=== PATIENT | female | born 2000 | race African-American/Black ===

== ENCOUNTER 2019-04-26 12:00 | Day surgery (SDC) | payer OTHER ==
[2019-04-26 12:58] VITALS: BMI 36.0
[2019-04-26] MEDS ORDERED: FLU VACC QS2019-20(6MOS UP)/PF 60 MCG/0.5 ML SYRINGE IM ONE (13:15)
[2019-04-26 14:21] LABS: #Eosinphils 0.1 thou/uL (0.0-0.7); #Lymphocytes 1.3 thou/uL (1.20-3.40); #Monocytes 0.9 thou/uL (0.11-0.59); #Neutrophils 9.3 thou/uL (1.40-6.50); %Basophils 0.1 % (0.0-1.0); %Eosinophils 0.6 % (0.0-10.0); %Lymphocytes 11.5 % (28.0-48.0); %Monocytes 7.4 % (0.0-4.0); %Neutrophils 80.4 % (31.0-61.0); Hemoglobin 11.6 g/dL (12.0-16.0); Mean Corpuscular HGB CONC 33.7 g/dL (32.0-36.0); Mean Corpuscular Hemoglobin 27.5 pg (25.0-35.0); Mean Corpuscular Volume 81.6 fL (78.0-98.0); Mean Platelet Volume 8.3 fL (7.4-10.4); Platelet Count 231 thou/uL (130-400); RBC Distribution Width 13.1 % (11.5-14.5); Red Blood Cell (RBC) Count 4.22 mill/uL (4.00-5.20); White Blood Cell (WBC) Count 11.6 thou/uL (4.8-10.8)
[2019-04-26 14:45] LABS: ALT (SGPT) 7 U/L (8-55); AST (SGOT) 17 U/L (5-30); Alkaline Phosphatase 130 U/L (40-100); Anion Gap 12 mmol/L (10-20); BUN (Urea Nitrogen) 8 mg/dL (8.4-21.0); Bilirubin, Total 0.2 mg/dL (0.2-1.2); Calc. Creatinine Clearance 180 mL/min (70-130); Calcium 8.9 mg/dL (7.8-10.44); Carbon Dioxide 22 mmol/L (22-29); Chloride 106 mmol/L (98-107); Estimated GFR-MDRD Greater than 90; Globulin 3.8 g/dL (2.4-3.5); Glucose 73 mg/dL (70-105); Potassium 4.3 mmol/L (3.5-5.1); Protein, Total 6.8 g/dL (6.0-8.3); Sodium 136 mmol/L (136-145); Uric Acid 4.6 mg/dL (2.6-6.0)
[2019-04-26] MEDS ORDERED: hydrALAZINE 20 MG/ML VIAL SLOW IVP PRN (17:01)
--- NOTE | 2019-04-26 17:32 | CON ---
DATE OF CONSULTATION: 04/26/2019 PRIMARY OB: Brittany Rasmussen MD CHIEF COMPLAINT: Elevated blood pressures. HISTORY OF PRESENT ILLNESS: The patient is a 18-year-old G1, P0 female with an intrauterine at 37 weeks and 2 days, presenting to Labor and Delivery from clinic today after a routine visit. The patient was noted to have elevated blood pressures in the 140 systolic and sent here for evaluation. The patient denies headache, chest pain, shortness of breath, abdominal pain, vision change, fever, nausea, vomiting, diarrhea, constipation, hip problems, knee problems, muscle weakness, any new rashes, urinary urgency or frequency, vaginal bleeding, or leakage of fluid. PAST MEDICAL HISTORY: Negative. PAST SURGICAL HISTORY: Negative. ALLERGIES: NO KNOWN DRUG ALLERGIES. MEDICATIONS: vitamins. SOCIAL HISTORY: Denies drug, alcohol, or tobacco use. OB LABS: Unavailable at the time of dictation. REVIEW OF SYSTEMS: Per HPI. PHYSICAL EXAMINATION: VITAL SIGNS: Most recent blood pressure is 127/83, heart rate of 72. The patient has been present for the last several hours with blood pressure monitoring and has had only one blood pressure elevated borderline at diastolic of 91. The rest of her blood pressures have been in the 1-teens to 130s over 70s to 80s. GENERAL: She appears to be in no acute distress. She is alert and oriented, cooperative and pleasant to interact with. HEAD: Normocephalic and atraumatic. LUNGS: Clear to auscultation bilaterally. HEART: Has a regular rate and rhythm. ABDOMEN: Gravid, soft, and nontender. EXTREMITIES: Nontender and nonedematous. She has a negative Quick sign. heart tracing shows the fetus with a baseline in the 120s with moderate long-term variability, positive 15 x 15 accelerations, no decelerations. The patient is showing contractions, irregular in nature, every 2 to 5 minutes, that are not all perceptible to the patient. She does report she does feel a little bit of tightening in her belly, but has no pain. ASSESSMENT AND PLAN: The patient is a 18-year-old G1, P0 female with an intrauterine at 37 weeks and 2 days, who had some isolated elevated pressures in the clinic that are not reproducible here with us. No evidence of preeclampsia by lab work, and the patient is without symptoms at this time. She is being discharged to home with reassurance. She has been given instructions to check her blood pressures at home and has been given instructions on good technique. She also has been given instructions to call tomorrow, Dr. Rasmussen's office and make a followup appointment early next week. Fetus has a category 1 tracing and reactive NST. Job ID: [id number]
== END 2019-04-26 17:00 | disposition home or self-care (01) ==
LOC: L&D/OP 12:00 → EDSTATUS 14:02 → L&D/OP 17:00
PROVIDERS: ATTEND Obstetrics & Gynecology
DX: O16.3 Unspecified maternal hypertension, third trimester (principal); Z3A.37 37 weeks gestation of pregnancy
CPT/HCPCS: 36415; 80053; 82570; 84156; 84550; 85025

== ENCOUNTER 2019-05-03 10:55 | Inpatient (IN) | payer OTHER ==
[2019-05-03 11:57] VITALS: BMI 36.0
[2019-05-03] MEDS ORDERED: Lidocaine 1% (PF) 30 ML VIAL SC PRN (12:28)
[2019-05-03] MEDS ORDERED: Ondansetron PF 4 MG/2 ML Vial IVP PRN ×2 (12:28→23:31)
[2019-05-03] MEDS ORDERED: NS / Oxytocin 40 units/1000ml 1,000 ML IV PRN (12:28)
[2019-05-03] MEDS ORDERED: Butorphanol Tartrate 1 MG/ML VIAL SLOW IVP PRN (12:28)
[2019-05-03] MEDS ORDERED: Acetaminophen 500 MG TAB PO PRN (12:28)
[2019-05-03] MEDS ORDERED: hydrALAZINE 20 MG/ML VIAL SLOW IVP PRN (12:28)
[2019-05-03] MEDS ORDERED: Promethazine HCl 25 MG/ML VIAL IM PRN ×2 (12:28→23:31)
[2019-05-03] MEDS ORDERED: NS w/ Oxytocin 10 units 500 ML IV SCH (12:30)
[2019-05-03] MEDS: Lactated Ringer's 1,000 ML IV SCH ×2 (12:42→20:27)
[2019-05-03 12:57] LABS: Mean Corpuscular HGB CONC 34.1 g/dL (32.0-36.0); Mean Corpuscular Hemoglobin 26.9 pg (25.0-35.0); Mean Corpuscular Volume 79.1 fL (78.0-98.0); Mean Platelet Volume 8.9 fL (7.4-10.4); Platelet Count 238 thou/uL (130-400); RBC Distribution Width 13.2 % (11.5-14.5); Red Blood Cell (RBC) Count 4.43 mill/uL (4.00-5.20); White Blood Cell (WBC) Count 12.2 thou/uL (4.8-10.8)
[2019-05-03] MEDS: Misoprostol 100 MCG TAB VAG SCH ×4 (13:18→22:45)
[2019-05-03 13:38] LABS: HBSAg Index 0.17 S/CO (0-0.99); Hep B Surf Ag Non-Reactive S/CO (NonReactive); Syphilis Antibody Nonreactive (Nonreactive); Syphilis Antibody Index 0.06 S/CO (<1.00 Non-Reactive)
[2019-05-03 13:43] LABS: ALT (SGPT) 8 U/L (8-55); AST (SGOT) 24 U/L (5-30); Albumin 3.2 g/dL (3.5-5.0); Alkaline Phosphatase 142 U/L (40-100); Anion Gap 14 mmol/L (10-20); BUN (Urea Nitrogen) 8 mg/dL (8.4-21.0); Bilirubin, Total 0.2 mg/dL (0.2-1.2); Calc. Creatinine Clearance 206 mL/min (70-130); Calcium 8.8 mg/dL (7.8-10.44); Carbon Dioxide 19 mmol/L (22-29); Chloride 105 mmol/L (98-107); Estimated GFR-MDRD Greater than 90; Globulin 3.9 g/dL (2.4-3.5); Glucose 72 mg/dL (70-105); Potassium 4.8 mmol/L (3.5-5.1); Protein, Total 7.1 g/dL (6.0-8.3); Sodium 133 mmol/L (136-145)
[2019-05-03] MEDS ORDERED: Fentanyl 4 mcg/Bup 0.1% Cadd 100 ML ONE (22:51)
[2019-05-03] MEDS ORDERED: diphenhydrAMINE 50 MG/ML VIAL IVP PRN (23:31)
[2019-05-03] MEDS ORDERED: Naloxone HCl 0.4 mg/ml Vial IVP PRN ×2 (23:31)
[2019-05-03] MEDS ORDERED: ePHEDrine/0.9% NaCl/PF SYRINGE 50 mg/10 ml SLOW IVP PRN (23:31)
[2019-05-03] MEDS ORDERED: Acetaminophen 325 MG TAB PO PRN (23:31)
[2019-05-03] MEDS ORDERED: Lactated Ringer's 500 ML IV PRN (23:31)
[2019-05-03] MEDS ORDERED: Communication Order-Pharmacy FS SCH (23:45)
[2019-05-04] MEDS: Lactated Ringer's 1,000 ML IV SCH ×2 (00:22→14:25)
[2019-05-04] MEDS: Misoprostol 100 MCG TAB VAG SCH ×5 (03:23→17:06)
[2019-05-04] MEDS ORDERED: Fentanyl 4 mcg/Bup 0.1% Cadd 100 ML ONE ×2 (07:06→13:56)
[2019-05-04] MEDS: Fentanyl 4 mcg/Bupivacaine 0.1% Cassette 100 ML EPIDURAL SCH ×2 (07:37→14:02)
[2019-05-04] MEDS ORDERED: FLU VACC QS2019-20(6MOS UP)/PF 60 MCG/0.5 ML SYRINGE IM ONE (12:15)
[2019-05-04] MEDS ORDERED: Bicitra 30 ML UDCUP ONE (14:19)
--- NOTE | 2019-05-04 14:27 | PDOC.EVN ---
Event Note - Event Note Event Note: Patient admitted for mild preeclampsia at 38-39 weeks. Has undergone cytotec and pitocin induction. Reached complete/complete ROP over 2 hourS AGO. Has been pushing with no descent in station. Manual rotation attempted with no success. tracing baseline 120's with reactivity. Pelvis is anthropoid and marginal... Exam complete/complete anterior fontanel at minus 1 station... A/P 18 y/o AAF at 38-39 weeks with mild PIH. Failure to descend in second stage with persistent ROP postion. Proceed with primary section.
[2019-05-04] MEDS ORDERED: Azithromycin 500 MG in Sodium Chloride 0.9% 250 ML 250 ML IVPB ONE (14:30)
[2019-05-04] MEDS ORDERED: Bicitra 30 ML UDCUP PO SCH (14:30)
[2019-05-04] MEDS ORDERED: CEFAZOLIN 2 GM in Premix Bag 1 BAG IVPB ONE (14:30)
[2019-05-04] MEDS ORDERED: hydrALAZINE 20 MG/ML VIAL SLOW IVP PRN (14:32)
[2019-05-04] MEDS ORDERED: Misoprostol 200 MCG TAB PR PRN (14:32)
[2019-05-04] MEDS ORDERED: Lanolin Ointment 7 GM TUBE TOP PRN (14:32)
[2019-05-04] MEDS ORDERED: Bisacodyl 10 MG SUPP PR PRN (14:32)
[2019-05-04] MEDS ORDERED: Adacel (T-DAP) 0.5 ML SYRINGE IM ONE (14:32)
[2019-05-04] MEDS ORDERED: Ketorolac Tromethamine 30 MG/ML VIAL ONE (14:42)
[2019-05-04] MEDS ORDERED: Oxytocin 10 UNITS/ML VIAL ONE (14:42)
[2019-05-04] MEDS ORDERED: ePHEDrine/0.9% NaCl/PF SYRINGE 50 mg/10 ml ONE (14:42)
[2019-05-04] MEDS ORDERED: Ondansetron PF 4 MG/2 ML Vial ONE (14:42)
[2019-05-04] MEDS ORDERED: Dexamethasone 4 mg/ml Vial ONE (14:42)
[2019-05-04] MEDS ORDERED: MORPHINE 5 MG/10 ML PF VIAL ONE (14:43)
[2019-05-04] MEDS ORDERED: PHENYLEPHRINE-NS 100 MCG/ML 10 ML SYRINGE ONE (14:43)
[2019-05-04] MEDS ORDERED: Lidocaine 1% PF 5 ML VIAL ONE (15:05)
[2019-05-04] MEDS ORDERED: Succinylcholine Chloride 20 MG/ML 10 ml SYRINGE FS ONE (15:05)
[2019-05-04] MEDS ORDERED: PROPOFOL 20 ML ONE (15:05)
[2019-05-04 15:33] LABS: pH (Cord, venous) 7.23 (7.32-7.43)
[2019-05-04] MEDS ORDERED: diphenhydrAMINE 50 MG/ML VIAL IVP PRN (15:35)
[2019-05-04] MEDS ORDERED: HYDROmorphone 2 MG/ML VIAL SLOW IVP PRN (15:35)
[2019-05-04] MEDS ORDERED: Meperidine HCl/PF 25 MG/ML VIAL SLOW IVP PRN (15:35)
[2019-05-04] MEDS ORDERED: Naloxone HCl 0.4 mg/ml Vial IVP PRN ×2 (15:35)
[2019-05-04] MEDS ORDERED: L&D-Morphine 4 MG/ML VIAL SLOW IVP PRN (15:35)
[2019-05-04] MEDS ORDERED: Promethazine HCl 25 MG/ML VIAL IM PRN (15:35)
[2019-05-04] MEDS ORDERED: Ondansetron HCl/PF 4 MG/2 ML Vial IVP PRN (15:35)
[2019-05-04] MEDS ORDERED: Naloxone HCl 0.4 mg/ml Vial IV PRN (15:35)
[2019-05-04] MEDS ORDERED: Ondansetron PF 4 MG/2 ML Vial IVP PRN (15:35)
[2019-05-04] MEDS ORDERED: Promethazine HCl 25 MG SUPP PR PRN (15:35)
[2019-05-04] MEDS ORDERED: Communication Order-Pharmacy FS SCH (15:45)
[2019-05-04] MEDS ORDERED: Ketorolac Tromethamine 30 MG/ML VIAL IVP SCH (15:45)
[2019-05-04] MEDS ORDERED: Meperidine HCl/PF 25 MG/ML VIAL ONE (17:02)
[2019-05-04] MEDS: Ibuprofen 800 MG TAB PO SCH (18:32)
[2019-05-04] MEDS: Ketorolac Tromethamine 30 MG/ML VIAL IVP PRN (19:53)
--- NOTE | 2019-05-04 21:26 | OP ---
DATE OF PROCEDURE: 05/04/2019 PREOPERATIVE DIAGNOSES: 1. A 18-year-old female, G1, P0, at 38 to 39 weeks. 2. Mild -induced hypertension. 3. Status post labor induction with failure to descend in second stage with persistent OP presentation. POSTOPERATIVE DIAGNOSES: 1. A 18-year-old female, G1, P0, at 38 to 39 weeks. 2. Mild -induced hypertension. 3. Status post labor induction with failure to descend in second stage with persistent OP presentation. PROCEDURES PERFORMED: Primary low transverse section with approximately a 2 cm left inferior extension repaired. COKE HANDLING SUPERVISOR SURGEON: Garth Maradiaga MD ANESTHESIA: Epidural, which was converted to general due to regional anesthetic not adequate for delivery. ESTIMATED BLOOD LOSS: 500 mL. COMPLICATIONS: None. COUNTS: Correct x2. ANTIBIOTICS: 2 g Ancef on-call to OR and Zithromax 500 mg were administered. FINDINGS: 1. Female infant, OP presentation, Apgars initially 1, 7, and 9. Baby had some effects of the anesthesia from the general and was sleepy with response to positive-pressure ventilation. 2. Normal uterus, fallopian tubes, and ovaries. 3. Pelvis was noted to be having very narrow pelvic arch with prominent sacral promontory noted. DISPOSITION: Recovery room, stable. DESCRIPTION OF PROCEDURE: The patient previously received informed consent in regard to surgery. She was taken back to the operating room, where she received a dosing of her epidural. On testing after the prep process, she still had pain and therefore general anesthetic was administered by the anesthesia staff. Once the airway was secured, a Pfannenstiel incision was made through the abdomen, carried down the fascia. Fascia was nicked in the midline. Fascial incision was extended bilaterally using curved Hilton scissors. The rectus fascia was dissected superiorly and inferiorly off the rectus muscle bellies. Rectus muscle bellies were divided in midline. Peritoneal cavity was entered. Paulino O retractor was then placed. A 2-cm hysterotomy incision was made well above the vesicouterine peritoneal reflection. The baby was then delivered in the vertex presentation, OP position was confirmed. The mouth and nares of the infant were bulb suctioned on the abdomen. The cord was doubly clamped and cut and handed to the ag equipment field service technician in attendance. Usual cord blood and cord ABG were obtained. Placenta was manually extracted and uterus was externalized. The uterus was curetted of any remaining placental fragments with dry laparotomy sponge. There was noted to be a 2-cm left inferior extension and the apex of this was grasped with a ring forceps and the other edge of the hysterotomy on the right side was grasped with a ring forceps. The hysterotomy incision was then closed in running locking fashion with a #1 Monocryl suture. The extension was closed then from Dr. Maradiaga's angle from the left angle upward toward the midline oversewing the hysterotomy incision. Good hemostasis was confirmed. The uterus was then replaced back in the abdomen. Pelvis was irrigated and suctioned. Hysterotomy incision again was noted to be hemostatic. The Paulino O retractor was removed. Again, the pelvis was inspected. Hemostasis was confirmed. The rectus muscle bellies were noted to be hemostatic prior to fascial closure. The fascia was closed with 0 PDS suture in a running continuous fashion with good fascial closure noted. Subcutaneous tissue was irrigated and noted to be hemostatic prior to skin approximation and closure with keiry. The surgery was terminated. No anesthetic or surgical complications occurred. Job ID: [id number]
[2019-05-04] MEDS: Docusate Calcium (SURFAK) 240 MG CAP PO SCH (21:43)
[2019-05-05] MEDS: Simethicone Chewable 80 MG TAB PO PRN (00:11)
[2019-05-05] MEDS: Lactated Ringer's 1,000 ML IV SCH (01:30)
[2019-05-05] MEDS: Ketorolac Tromethamine 30 MG/ML VIAL IVP PRN (01:37)
[2019-05-05] MEDS ORDERED: HYDROcodone/Acetaminophen 5/325 mg Tablet PO PRN (03:45)
[2019-05-05] MEDS: Ibuprofen 800 MG TAB PO SCH ×3 (05:18→21:38)
[2019-05-05 05:23] LABS: Hemoglobin 9.3 g/dL (12.0-16.0); Mean Corpuscular Hemoglobin 26.9 pg (25.0-35.0); Mean Corpuscular Volume 81.6 fL (78.0-98.0); Mean Platelet Volume 8.2 fL (7.4-10.4); Platelet Count 197 thou/uL (130-400); RBC Distribution Width 13.1 % (11.5-14.5); Red Blood Cell (RBC) Count 3.45 mill/uL (4.00-5.20); White Blood Cell (WBC) Count 17.5 thou/uL (4.8-10.8)
--- NOTE | 2019-05-05 08:05 | PRG ---
DATE OF SERVICE: 05/05/2019 SUBJECTIVE: The patient is a 18-year-old female postoperative day 1, status post primary for arrest of descent. The patient reports this morning that the Dominguez catheter was just removed, and she has not been up to use the restroom yet. Her pain is fairly well tolerated at the moment with her pain medications. PHYSICAL EXAMINATION: VITAL SIGNS: At this time, blood pressure 137/82, temperature 98.5, pulse is 74, respiratory rate of 16. GENERAL: She appears to be in no acute distress. She is alert, oriented, cooperative, and pleasant to interact with. HEENT: Head is normocephalic and atraumatic. ABDOMEN: Still bandaged, but there is no staining. EXTREMITIES: Nontender, nonedematous. LABORATORY DATA: Post-delivery hemoglobin is 9.3, hematocrit 28.2, platelets 197,000. ASSESSMENT AND PLAN: The patient is a 18-year-old female postoperative day 1, status post a primary section for arrest of labor. Plan today is to confirm spontaneous voiding, ambulate, advance diet as tolerated and to assess the adequacy of her oral pain medication. Dr. Samanta Mireles is the oncoming physician. Job ID: [id number]
[2019-05-05] MEDS: Prenatal Vitamin 1 TAB PO SCH (09:30)
[2019-05-05] MEDS: Docusate Calcium (SURFAK) 240 MG CAP PO SCH ×2 (09:30→21:38)
[2019-05-05] MEDS: HYDROcodone/Acetaminophen 5/325 mg Tablet PO PRN (20:30)
[2019-05-06] MEDS: HYDROcodone/Acetaminophen 5/325 mg Tablet PO PRN ×3 (05:22→21:24)
[2019-05-06] MEDS: Ibuprofen 800 MG TAB PO SCH ×3 (05:23→21:24)
--- NOTE | 2019-05-06 07:29 | PRG ---
DATE OF SERVICE: 05/06/2019 TIME OF SERVICE: 0710 hours. SUBJECTIVE: Ms. Melo is postoperative day number 2 from a primary section for failure to progress. She is resting comfortably and has no complaints. OBJECTIVE: VITAL SIGNS: Temperature 98.8, pulse 72, respirations 24, blood pressure 143/82. HEENT: Within normal limits to auscultation bilaterally. HEART: Regular rate and rhythm. ABDOMEN: Soft and nontender. Incision is intact and dry. EXTREMITIES: Without clubbing or cyanosis. Mild edema. IMPRESSION: Postoperative day number 1 to 2 status post primary delivery. PLAN: Routine care. Observe blood pressures. Anticipate probable 05/07 discharge. Job ID: [id number]
[2019-05-06] MEDS: Docusate Calcium (SURFAK) 240 MG CAP PO SCH ×2 (08:42→21:24)
[2019-05-06] MEDS: Prenatal Vitamin 1 TAB PO SCH (08:42)
[2019-05-06] MEDS: Simethicone Chewable 80 MG TAB PO PRN (08:42)
[2019-05-07] MEDS: Ibuprofen 800 MG TAB PO SCH ×3 (06:11→21:40)
--- NOTE | 2019-05-07 07:24 | PDOC.PP ---
Post Progress Note Post Day #: 2-3 Subjective: No PIH symptoms. PO intake tolerated: yes Flatus: yes Ambulation: yes Vital Signs (12 hours) Temp Pulse Resp BP Pulse Ox 05/07/19 00:40 98.3 F 68 24 H 135/94 H 97 05/06/19 19:50 98.8 F 72 20 144/91 H 98 Weight Weight 197 lb Result Diagrams: 05/05/19 05:12 05/03/19 12:46 Additional Labs: Post Labs Blood Type B POSITIVE 05/03/19 12:46 Hep Bs Antigen Non-Reactive S/CO (NonReactive) 05/03/19 12:46 - Assessment/Plan Post op day 2-3. Mild PIH. No severe range blood pressures noted. Progressing well. Possible discharge this PM or in AM...
[2019-05-07] MEDS: Prenatal Vitamin 1 TAB PO SCH (09:24)
[2019-05-07] MEDS: Docusate Calcium (SURFAK) 240 MG CAP PO SCH ×2 (09:24→21:40)
--- NOTE | 2019-05-07 10:56 | OP ---
DATE OF PROCEDURE: 05/04/2019 I have functioned as 1st assist to a primary for Rebecca Green Kameron, . Primary surgeon is Dr. Rasmussen. Please refer to her operative note for complete details. Job ID: [id number]
[2019-05-08] MEDS: HYDROcodone/Acetaminophen 5/325 mg Tablet PO PRN (04:36)
[2019-05-08] MEDS: Ibuprofen 800 MG TAB PO SCH (06:11)
--- NOTE | 2019-05-08 07:56 | PDOC.PP ---
Post Progress Note Post Day #: 4 PO intake tolerated: yes Flatus: yes Ambulation: yes Vital Signs (12 hours) Temp Pulse Resp BP Pulse Ox 05/08/19 04:37 98.2 F 71 18 153/82 H 97 05/07/19 23:21 97.9 F 68 17 143/86 H 100 05/07/19 19:58 98.9 F 87 12 138/93 H 97 Weight Weight 197 lb Result Diagrams: 05/05/19 05:12 05/03/19 12:46 Additional Labs: Post Labs Blood Type B POSITIVE 05/03/19 12:46 Hep Bs Antigen Non-Reactive S/CO (NonReactive) 05/03/19 12:46 - Assessment/Plan Post op day 4 from primary c/s -failure to descend. Mild pih---nor severe range blood pressures noted. Discharge home today. Kelin out in 2 days in my office with blood pressure check....
[2019-05-08 08:13] VITALS: BP 143/94; TEMP 98.7
[2019-05-08] MEDS: Docusate Calcium (SURFAK) 240 MG CAP PO SCH (08:38)
[2019-05-08] MEDS: Prenatal Vitamin 1 TAB PO SCH (08:38)
== END 2019-05-08 10:52 | disposition home or self-care (01) | DRG 788 ==
LOC: L&D/OP 10:55 → L&D 11:02 → 3SE 05-04 18:28
PROVIDERS: ADMIT Obstetrics & Gynecology; ATTEND Obstetrics & Gynecology
PROC: 10D00Z1 Extraction of Products of Conception, Low, Open Approach (ICD-10-PCS; principal; 2019-05-04)
PROC: 3E0P7VZ Introduction of Hormone into Female Reproductive, Via Natural or Artificial Opening (ICD-10-PCS; 2019-05-04)
PROC: 3E033VJ Introduction of Other Hormone into Peripheral Vein, Percutaneous Approach (ICD-10-PCS; 2019-05-04)
PROC: 3E0234Z Introduction of Serum, Toxoid and Vaccine into Muscle, Percutaneous Approach (ICD-10-PCS; 2019-05-04)
DX: O13.4 Gestational [pregnancy-induced] hypertension without significant proteinuria, complicating childbirth (principal); Z37.0 Single live birth; O63.1 Prolonged second stage (of labor); O99.89 Other specified diseases and conditions complicating pregnancy, childbirth and the puerperium; M95.5 Acquired deformity of pelvis; O61.0 Failed medical induction of labor; Z23 Encounter for immunization; Z3A.38 38 weeks gestation of pregnancy
CPT/HCPCS: 36415; 80053; 82805; 85027; 86780; 86850; 86900; 86901; 87340; J0690; J1100; J1885; J2001; J2175; J2274; J2405; J2590; J2704

== ENCOUNTER 2019-05-10 23:09 | Emergency (ER) | payer OTHER ==
[2019-05-11] MEDS ORDERED: Ketorolac Tromethamine 30 MG/ML VIAL ONE (00:28)
[2019-05-11 00:35] LABS: #Basophils 0.1 thou/uL (0.0-0.2); #Eosinphils 0.1 thou/uL (0.0-0.7); #Lymphocytes 1.9 thou/uL (1.20-3.40); #Monocytes 0.7 thou/uL (0.11-0.59); #Neutrophils 9.2 thou/uL (1.40-6.50); %Basophils 0.5 % (0.0-1.0); %Lymphocytes 15.6 % (28.0-48.0); %Monocytes 6.1 % (0.0-4.0); %Neutrophils 76.8 % (31.0-61.0); Hemoglobin 11.5 g/dL (12.0-16.0); Mean Corpuscular HGB CONC 33.5 g/dL (32.0-36.0); Mean Corpuscular Hemoglobin 27.2 pg (25.0-35.0); Mean Corpuscular Volume 81.1 fL (78.0-98.0); Mean Platelet Volume 7.5 fL (7.4-10.4); Platelet Count 348 thou/uL (130-400); RBC Distribution Width 13.1 % (11.5-14.5); Red Blood Cell (RBC) Count 4.22 mill/uL (4.00-5.20)
[2019-05-11 01:00] LABS: ALT (SGPT) 22 U/L (8-55); AST (SGOT) 21 U/L (5-30); Albumin 3.5 g/dL (3.5-5.0); Alkaline Phosphatase 123 U/L (40-100); Anion Gap 16 mmol/L (10-20); BUN (Urea Nitrogen) 10 mg/dL (8.4-21.0); Bilirubin, Total 0.3 mg/dL (0.2-1.2); Calc. Creatinine Clearance 0 mL/min (70-130); Calcium 9.1 mg/dL (7.8-10.44); Carbon Dioxide 20 mmol/L (22-29); Chloride 104 mmol/L (98-107); Estimated GFR-MDRD Greater than 90; Globulin 4.3 g/dL (2.4-3.5); Glucose 87 mg/dL (70-105); Lipase 6 U/L (8-78); Potassium 4.1 mmol/L (3.5-5.1); Protein, Total 7.8 g/dL (6.0-8.3); Sodium 136 mmol/L (136-145)
[2019-05-11] MEDS ORDERED: Acetaminophen 500 MG TAB ONE (01:40)
[2019-05-11 02:25] LABS: Bacteria/HPF None Seen HPF (None Seen); Bilirubin Negative (Negative); Blood, Urine 2+ (Negative); Clarity Clear (Clear); Glucose, Urine (Dipstick) Normal (Negative); Leukocyte 75 Leu/uL (Negative); Nitrite Negative (Negative); Protein, Urine (Dipstick) 30 mg/dL (Neg-Trace); RBC/HPF Greater than 50 HPF (0-3); Squamous Epithelial 0-3 HPF (0-3); Urobilinogen Normal mg/dL (Less than 2)
--- NOTE | 2019-05-11 07:37 | RAD ---
Portable frontal chest radiograph: 05/11/2019 COMPARISON: 07/25/2004 HISTORY: Hypertension, pain, chest tightness FINDINGS: Lungs are clear. Heart and mediastinal contours appear within normal limits. IMPRESSION: No acute findings.
--- NOTE | 2019-05-11 07:42 | CT ---
PRELIMINARY REPORT/[facility]/EMERGENCY AFTER HOURS PROCEDURE PROCEDURE INFORMATION: Exam: CT Angiography Chest With Contrast Exam date and time: 05/11/2019 1:22 AM Clinical history: 18 years old, female; Shortness of breath; Chest pain; Patient HX: F18 presents to the ED with C/O chest tightness, nausea and vomiting since today. Patient reports she had last week. TECHNIQUE: Imaging protocol: Computed tomographic angiography of the chest with intravenous contrast. 3D rendering: MIP reconstructed images were created and reviewed. COMPARISON: No relevant prior studies available. FINDINGS: Pulmonary arteries: No acute findings. No evidence of pulmonary embolism. Aorta: No acute findings. No aortic aneurysm or dissection. Lungs: No consolidation. No masses. Pleural space: No pneumothorax. No pleural effusion. Heart: Cardiomegaly. Trace pericardial fluid. Lymph nodes: No significant adenopathy. Bones/joints: No acute fracture. Soft tissues: No acute findings. IMPRESSION: No evidence of pulmonary embolism. Cardiomegaly. Thank you for allowing us to participate in the care of your patient. Dictated and Authenticated by: Ebenezer Phillips MD 05/11/2019 2:06 AM Central Time ([place] & [place]) FINAL REPORT CT ANGIOGRAM CHEST: Date: 05/11/2019 COMPARISON: None. HISTORY: Chest tightness with nausea and vomiting. FINDINGS: Axial CT imaging at 2.5 mm intervals obtained through the chest with IV contrast including coronal and sagittal 3-D reformatted imaging. The heart appears enlarged. Upper abdomen demonstrates no acute findings. No pleural, pericardial, or mediastinal fluid is seen. No central pul monary arterial embolism is evident. Distal pulmonary arteries are not optimally assessed on this exam. Lungs appear grossly unremarkable as do the osseous structures. IMPRESSION: No evidence for a central pulmonary arterial embolism. Code QA. Transcribed Date/Time: 05/11/2019 8:06 AM
--- NOTE | 2019-05-12 13:23 | EKG ---
Test Reason : Blood Pressure : / mmHG Vent. Rate : 067 BPM Atrial Rate : 067 BPM P-R Int : 128 ms QRS Dur : 072 ms QT Int : 368 ms P-R-T Axes : 029 -10 013 degrees QTc Int : 388 ms Normal sinus rhythm with sinus arrhythmia Left atrial enlargement Left ventricular hypertrophy Abnormal ECG Confirmed by ALLAN VALENZUELA ([id number]), editorial cartoonist JOEL RADER ([id number]) on 05/12/2019 1:22:55 PM Referred By: Confirmed By:ALLAN VALENZUELA
== END 2019-05-11 02:42 | disposition home or self-care (01) ==
LOC: ERS 23:09
DX: R07.89 Other chest pain (principal); J45.909 Unspecified asthma, uncomplicated
CPT/HCPCS: 71045; 71275; 80053; 81003; 81015; 83690; 84484; 85025; 85379; 87086; 93005; 96374; J1885